=== PATIENT | female | born 1985 | race Caucasian/White ===

== ENCOUNTER 2017-04-25 20:58 | Inpatient (IN) | payer OTHER ==
[2017-04-25 21:45] VITALS: BMI 23.0
--- NOTE | 2017-04-25 22:06 | HP ---
CIWA Score - CIWA Score Nausea/Vomitin Muscle Tremors: 3 Anxiety: 3 Agitation: 3 Paroxysmal Sweats: 2 Orientation: 0-Oriented Tacttile Disturbances: 2-Mild Itch/Numbness/Burn Auditory Disturbances: 2-Mild Harshness/Frighten Visual Disturbances: 2-Mild Sensitivity Headache: 2-Mild CIWA-Ar Total Score: 22 Admission ROS [facility] - HPI Chief Complaint: i need help to stop drinking alcohol,klonopin and cocaine and marijuana,, seeking detox,last treatment 08/09 in [place] syncope alcohol and drug related anxiety depression adhd nicotine dependence longest period of sobriety Allergies/Adverse Reactions: Allergies Allergy/AdvReac Type Severity Reaction Status Date / Time Fish Containing Products Allergy Intermediate Swelling Verified 04/25/17 22:34 iodine Allergy Intermediate Hives Verified 04/25/17 22:34 poison deborah extract Allergy Intermediate Itching Verified 04/25/17 22:34 shellfish derived Allergy Intermediate Swelling Verified 04/25/17 22:34 poison oak Allergy Intermediate Itching Uncoded 04/25/17 22:34 red ant Allergy Intermediate Itching Uncoded 04/25/17 22:34 shellfish Allergy Intermediate Swelling Uncoded 04/25/17 22:34 History of Present Illness: this 32 years old female with alcohol ,klonopin,cocaine and marijuana dependence ,seeking detox,last detox 08/09 in [place] as mentioned Exam Limitations: No Limitations - Ebola screening Have you been sick,other than usual withdrawal symptoms: Yes - Review of Systems Constitutional: Chills, Loss of Appetite, Malaise, Night Sweats, Changes in sleep, Weakness EENT: reports: Nose Congestion Respiratory: reports: No Symptoms reported Cardiac: reports: No Symptoms Reported GI: reports: Diarrhea, Nausea, Vomiting, Abdominal cramping : reports: No Symptoms Reported Musculoskeletal: reports: Back Pain, Muscle Pain Integumentary: reports: Dryness Neuro: reports: Headache, Tremors Endocrine: reports: No Symptoms Reported Hematology: reports: No Symptoms Reported Psychiatric: reports: Anxious, Depressed, other (adhd) Patient History - Patient Medical History Hx Anemia: No Hx Asthma: No Hx Chronic Obstructive Pulmonary Disease (COPD): No Hx Cancer: No Hx Cardiac Disorders: No Hx Congestive Heart Failure: No Hx Hypertension: No Hx Hypercholesterolemia: No Hx Pacemaker: No HX Cerebrovascular Accident: No Hx Seizures: No Hx Dementia: No Hx Diabetes: No Hx Gastrointestinal Disorders: No Hx Liver Disease: No Hx Genitourinary Disorders: No Hx Sexually Transmitted Disorders: No Hx Renal Disease (ESRD): No Hx Thyroid Disease: No Hx Human Immunodeficiency Virus (HIV): No (last 09/2015 negative) Hx Hepatitis C: No Hx Depression: Yes (anxiety) Hx Suicide Attempt: Yes (overdose at [facility]) Hx Bipolar Disorder: No Hx Schizophrenia: No Other Medical History: no suicidal,no homicidal - Patient Surgical History Other Surgical History: tonsillectomy at age of 18 years - PPD History Previous Implant?: Yes Documented Results: Negative w/o proof Implanted On Prior [facility] Admission?: No PPD to be Administered?: Yes - Reproductive History Patient is a Female of Child Bearing Age (11 -55 yrs old): Yes Last Menstrual Period: 04/07/17 Patient : No - Smoking Cessation Smoking history: Current every day smoker Have you smoked in the past 12 months: Yes Hx Chewing Tobacco Use: No Initiated information on smoking cessation: Yes 'Breaking Loose' booklet given: 04/25/17 - Substance & Tx. History Hx Alcohol Use: Yes Hx Substance Use: Yes Substance Use Type: Alcohol, Cocaine, Marijuana, Tranquilizers Hx Substance Use Treatment: Yes (08/09 in [place]) - Substances Abused Alcohol Route: Oral Frequency: Daily Amount used: 2 pints of vodka Age of first use: 13 Date of Last Use: 04/24/17 Benzodiazepine (Klonopin) Route: Oral Frequency: Daily Amount used: 2mgs Age of first use: 12 Date of Last Use: 04/24/17 Cocaine Frequency: Daily Amount used: 50$ Age of first use: 13 Date of Last Use: 04/24/17 Marijuana/Hashish Route: Smoking Amount used: 30$ Age of first use: 10 Date of Last Use: 04/25/17 Family Disease History - Family Disease History Family History: Denies Admission Physical Exam S - Vital Signs Vital Signs: Vital Signs - 24 hr 04/25/17 21:39 Temperature 96.9 F L Pulse Rate 74 Respiratory 18 Rate Blood Pressure 103/64 - Physical General Appearance: Yes: Moderate Distress, Irritable HEENTM: Yes: Normal ENT Inspection, VIKKI, Pharynx Normal Respiratory: Yes: Lungs Clear, Normal Breath Sounds, No Respiratory Distress Neck: Yes: Within Normal Limits, Supple, Trachea in good position Breast: Yes: Breast Exam Deferred Cardiology: Yes: Within Normal Limits, Regular Rhythm, Regular Rate, S1, S2 Abdominal: Yes: Within Normal Limits, Normal Bowel Sounds, Non Tender, Flat, Soft Genitourinary: Yes: Within Normal Limits Back: Yes: Muscle Spasm Musculoskeletal: Yes: Back pain, Muscle Pain Extremities: Yes: Tremors Neurological: Yes: email specialist II-XII NML intact, Alert, Motor Strength 5/5, Normal Mood /Affect, Normal Response Integumentary: Yes: Within Normal Limits, Dry Lymphatic: Yes: Within Normal Limits - Diagnostic (1) Alcohol dependence with uncomplicated withdrawal Current Visit: Yes Status: Acute (2) Uncomplicated sedative, hypnotic or anxiolytic withdrawal Current Visit: Yes Status: Acute (3) Cocaine dependence Current Visit: Yes Status: Acute (4) Cannabis dependence Current Visit: Yes Status: Acute (5) Anxiety and depression Current Visit: Yes Status: Acute (6) Insomnia Current Visit: Yes Status: Acute (7) Nicotine dependence Current Visit: Yes Status: Acute (8) ADHD (attention deficit hyperactivity disorder) Current Visit: Yes Status: Acute (9) Fibromyalgia Current Visit: Yes Status: Acute Cleared for Admission [facility] - Detox or Rehab [facility] Level of Care: Medically Managed Detox Regimen/Protocol: Valium [facility] Breath Alcohol Content Breath Alcohol Content: 0 Urine Pregancy Test - Result Urine Test Results: Negative- NO Line Present Urine Drug Screen - Results Drug Screen Negative: No Urine Drug Screen Results: THC-Marijuana, AARON-Cocaine, AMP-Amphetamines, BZO- Benzodiazepines, TCA-Tricyclic Antidepress
[2017-04-25] MEDS ORDERED: diazePAM 5 MG TABLET PO ONE (22:34)
[2017-04-25] MEDS ORDERED: MENTHOL/PHENOL 1 EACH UD MM PRN (22:34)
[2017-04-25] MEDS ORDERED: ACETAMINOPHEN 325 MG TABLET (FP) PO PRN (22:34)
[2017-04-25] MEDS ORDERED: IBUPROFEN 400 MG TABLET (FP) PO PRN (22:34)
[2017-04-25] MEDS ORDERED: MAG HYDROX/AL HYDROX/SIMETH 30 ML UNIT-DOSE CUP PO PRN (22:34)
[2017-04-25] MEDS ORDERED: guaiFENesin/D-METHORPHAN HB 10 ML UNIT-DOSE CUPS PO PRN (22:34)
[2017-04-25] MEDS ORDERED: MAGNESIUM HYDROX 2400MG/30ML ORAL SUSPENSION 30 ML CUP PO PRN (22:34)
[2017-04-25] MEDS ORDERED: LOPERAMIDE HCL 2 MG CAPSULE PO PRN (22:34)
[2017-04-25] MEDS ORDERED: MAGNESIUM CITRATE 300 ML BOTTLE PO PRN (22:34)
[2017-04-25] MEDS ORDERED: P-EPHED 60MG/TRIPROLIDI 2.5MG TABLET PO PRN (22:34)
[2017-04-25] MEDS ORDERED: NICOTINE POLACRILEX 2 MG GUM BUC PRN (22:34)
[2017-04-25] MEDS ORDERED: diphenhydrAMINE HCL 50 MG CAPSULE PO PRN (22:34)
[2017-04-25] MEDS: diazePAM 5 MG TABLET PO SCH (23:13)
[2017-04-26 00:19] LABS: URINE APPEARANCE CLOUDY; URINE BILIRUBIN NEGATIVE (NEGATIVE); URINE BLOOD 1+ (NEGATIVE); URINE COLOR DKYELLOW; URINE GLUCOSE (UA) NEGATIVE (NEGATIVE); URINE KETONE NEGATIVE (NEGATIVE); URINE NITRITE POSITIVE (NEGATIVE); URINE UROBILINOGEN NEGATIVE mg/dL (0.2-1.0)
[2017-04-26 00:32] LABS: URINE LEUK ESTERASE 3+ (NEGATIVE); URINE PROTEIN 2+ (NEGATIVE)
[2017-04-26 00:42] LABS: URINE BACTERIA MANY /hpf (NONE SEEN); URINE MUCUS FEW; URINE RBC 31 /hpf (0-3); URINE WBC 47 /hpf (3-5)
[2017-04-26] MEDS: diazePAM 5 MG TABLET PO SCH ×3 (07:00→22:33)
--- NOTE | 2017-04-26 08:42 | CONSULT ---
[facility] Psychiatric Consult - Data Date of interview: 04/26/17 Admission source: [facility] Identifying data: This is 32 years old female with history of anxiety and depression, ADHD, with no psychiatric hospitalization historyu intoxicated with : Alcohol, Cannabis, Klonopin, Cocaine, Nicotine Substance Abuse History: - Smoking Cessation. Smoking history: Current every day smoker. Have you smoked in the past 12 months: Yes. Hx Chewing Tobacco Use : No. Initiated information on smoking cessation: Yes. 'Breaking Loose' booklet given: 04/25/17. - Substance & Tx. History. Hx Alcohol Use: Yes. Hx Substance Use: Yes. Substance Use Type: Alcohol, Cocaine, Marijuana, Tranquilizers. Hx Substance Use Treatment: Yes (08/09 in [place]). - Substances Abused. Alcohol. Route: Oral. Frequency: Daily. Amount used: 2 pints of vodka. Age of first use: 13. Date of Last Use: 04/24/17. Benzodiazepine (Klonopin). Route: Oral. Frequency: Daily. Amount used: 2mgs. Age of first use: 12. Date of Last Use: 04/24/17. Cocaine. Frequency: Daily. Amount used: 50$. Age of first use: 13. Date of Last Use: 04/24/17. * * Marijuana/Hashish. Route: Smoking. Amount used: 30$. Age of first use: 10. Date of Last Use: 04/25/17 Medical History: Denies significant medical issues Psychiatric History: Patient reports ADHD, Anxiety and Depression history, reports taking prior to admission: Flexeril 20mg po bid. Seroquel 200mg po qhs. Buspat 120mg poqd. Gabapentin 400mg po tid. Adderal 20mg po bid. Patient has been anxious and angree when MD told her regarding detox protocol - no controllable drugs usage during detoxification, patidrakemt agrees to try Styattera 80mg po bid Physical/Sexual Abuse/Trauma History: Denies Additional Comment: Flexeril 20mg po bid. Seroquel 200mg po qhs. Buspat 120mg poqd. Gabapentin 400mg po tid. Adderal 20mg po bid Mental Status Exam - Mental Status Exam Alert and Oriented to: Person Cognitive Function: Fair Patient Appearance: Well Groomed Mood: Nervous, Anxious Affect: Labile Patient Behavior: Guarded, Impulsive Speech Pattern: Appropriate Voice Loudness: Mildly Loud Thought Process: Goal Oriented Thought Disorder: Being Controlled Hallucinations: Denies Suicidal Ideation: Denies Homicidal Ideation: Denies Insight/Judgement: Fair Sleep: Difficulty falling asleep Appetite: Fair Muscle strength/Tone: Normal Gait/Station: Normal Additional Comments: Flexeril 20mg po bid. Seroquel 200mg po qhs. Buspat 120mg poqd. Gabapentin 400mg po tid. Adderal 20mg po bid Psychiatric Findings - Problem List ([place] 1, 2,3) (1) Alcohol dependence with uncomplicated withdrawal Current Visit: Yes Status: Acute (2) Cannabis dependence Current Visit: Yes Status: Acute (3) Cocaine dependence Current Visit: Yes Status: Acute (4) Nicotine dependence Current Visit: Yes Status: Acute (5) Uncomplicated sedative, hypnotic or anxiolytic withdrawal Current Visit: Yes Status: Acute (6) Drug-induced mood disorder Current Visit: Yes Status: Acute (7) ADHD (attention deficit hyperactivity disorder) Current Visit: Yes Status: Acute (8) Fibromyalgia Current Visit: Yes Status: Acute - Initial Treatment Plan Initial Treatment Plan: Flexeril 20mg po bid. Seroquel 200mg po qhs. Buspar 20mg bid. Gabapentin 400mg po tid. Strattera 80mg po bid
[2017-04-26] MEDS ORDERED: QUEtiapine FUMARATE 100 MG TABLET (FP) PO SCH (10:00)
[2017-04-26 10:04] LABS: MCH 28.9 pg (25.7-33.7); MCHC 33.7 g/dl (32.0-36.0); MEAN CELL VOLUME 85.9 fl (80-96); MEAN PLT VOLUME 9.2 fl (7.5-11.1); PLATELET COUNT 200 K/MM3 (134-434); RDW 14.6 % (11.6-15.6); WHITE BLOOD COUNT 6.9 K/mm3 (4.0-10.0)
[2017-04-26 10:21] LABS: ALBUMIN 3.8 g/dl (3.4-5.0); ALK PHOS 57 U/L (45-117); ANION GAP 4 (8-16); BILIRUBIN,TOTAL 0.5 mg/dL (0.2-1.0); CALCIUM 9.3 mg/dL (8.5-10.1); CO2 30 mmol/L (21-32); CREATININE 0.9 mg/dL (0.55-1.02); GLUCOSE,RANDOM 72 mg/dL (74-106); SGOT/AST 10 U/L (15-37); SGPT/ALT 19 U/L (12-78); TOT PROT 6.1 g/dl (6.4-8.2)
[2017-04-26] MEDS: PRENATAL VITAMINS W/ FOLIC ACID TABLET (FP) PO SCH (10:49)
[2017-04-26] MEDS: diazePAM 5 MG TABLET PO PRN ×2 (10:50→18:10)
[2017-04-26] MEDS: NICOTINE 21 MG/24 HOURS TOPICAL PATCH TD SCH (10:50)
[2017-04-26] MEDS: ATOMOXETINE HCL 40 MG CAPSULE PO SCH ×2 (10:50→16:29)
[2017-04-26] MEDS: busPIRone HCL 10 MG TABLET (FP) PO SCH ×2 (10:52→22:31)
[2017-04-26] MEDS: CYCLOBENZAPRINE HCL 10 MG TABLET (FP) PO SCH ×2 (10:52→22:31)
--- NOTE | 2017-04-26 11:27 | EKG ---
Test Reason : Blood Pressure : / mmHG Vent. Rate : 070 BPM Atrial Rate : 070 BPM P-R Int : 152 ms QRS Dur : 098 ms QT Int : 406 ms P-R-T Axes : 075 084 070 degrees QTc Int : 438 ms NORMAL SINUS RHYTHM NORMAL ECG NO PREVIOUS ECGS AVAILABLE Confirmed by PRESTON ESCALERA, SARA ([id number]) on 04/26/2017 11:26:45 AM Referred By: Pastor Cole Confirmed By:SARA JOHNSTON MD
[2017-04-26 11:29] LABS: HIV 1 & 2 AB NEGATIVE; HIV 1 AGp24 NEGATIVE
[2017-04-26] MEDS: GABAPENTIN 400 MG CAPSULE (FP) PO SCH ×2 (13:54→22:32)
[2017-04-26] MEDS: SULFAMETHOXAZOLE/TRIMETHOPRIM 800MG/160MG D.S. TABLET PO SCH ×2 (13:54→22:31)
[2017-04-26] MEDS ORDERED: GABAPENTIN 400 MG CAPSULE (FP) PO SCH (14:00)
[2017-04-26] MEDS ORDERED: DOXYCYCLINE HYCLATE 100 MG CAPSULE PO SCH (17:00)
[2017-04-26] MEDS: QUEtiapine FUMARATE 300 MG TABLET PO SCH (22:32)
[2017-04-26] MEDS: THIAMINE HCL 100 MG TABLET (FP) PO SCH (22:33)
[2017-04-27] MEDS: GABAPENTIN 400 MG CAPSULE (FP) PO SCH ×3 (05:56→22:36)
[2017-04-27] MEDS: diazePAM 5 MG TABLET PO PRN ×2 (05:58→16:37)
[2017-04-27] MEDS: CYCLOBENZAPRINE HCL 10 MG TABLET (FP) PO SCH ×2 (10:57→22:35)
[2017-04-27] MEDS: busPIRone HCL 10 MG TABLET (FP) PO SCH ×2 (10:57→22:35)
[2017-04-27] MEDS: PRENATAL VITAMINS W/ FOLIC ACID TABLET (FP) PO SCH (10:57)
[2017-04-27] MEDS: SULFAMETHOXAZOLE/TRIMETHOPRIM 800MG/160MG D.S. TABLET PO SCH ×2 (10:58→22:35)
[2017-04-27] MEDS: NICOTINE 21 MG/24 HOURS TOPICAL PATCH TD SCH (10:58)
[2017-04-27] MEDS: diazePAM 5 MG TABLET PO SCH ×2 (10:58→22:36)
[2017-04-27] MEDS: ATOMOXETINE HCL 40 MG CAPSULE PO SCH ×2 (10:58→16:36)
[2017-04-27] MEDS ORDERED: RANITIDINE HCL 150 MG TABLET (FP) PO ONE (12:09)
[2017-04-27] MEDS: IBUPROFEN 600 MG TABLET (FP) PO PRN ×2 (12:27→22:36)
--- NOTE | 2017-04-27 12:29 | PN ---
S CIWA - CIWA Score Nausea/Vomitin-No Nausea/No Vomiting Muscle Tremors: 4-Moderate,w/Arms Extend Anxiety: 3 Agitation: 4-Moderately Restless Paroxysmal Sweats: 3 Orientation: 0-Oriented Tacttile Disturbances: 0-None Auditory Disturbances: 0-None Visual Disturbances: 0-None Headache: 0-None Present CIWA-Ar Total Score: 14 [facility] Progress Note (SOAP) Subjective: irritable sweats shakes interrupted sleep agitation Objective: 04/26/17 12:27 Vital Signs - 24 hr 04/26/17 04/26/17 04/27/17 14:15 23:52 00:30 Temperature 97.9 F 97.8 F Pulse Rate 74 74 Respiratory 16 18 18 Rate Blood Pressure 98/62 99/62 04/27/17 04/27/17 04/27/17 03:30 06:44 10:00 Temperature 97.5 F L 97.2 F L Pulse Rate 85 98 H Respiratory 18 18 20 Rate Blood Pressure 105/42 93/60 Laboratory Tests 04/25/17 04/26/17 04/26/17 23:30 07:30 07:30 WBC 6.9 RBC 4.11 Hgb 11.9 Hct 35.3 MCV 85.9 MCH 28.9 MCHC 33.7 RDW 14.6 Plt Count 200 MPV 9.2 Sodium 141 Potassium 4.7 Chloride 107 Carbon Dioxide 30 Anion Gap 4 L BUN 13 Creatinine 0.9 Creat Clearance w eGFR > 60 Random Glucose 72 L Calcium 9.3 Total Bilirubin 0.5 AST 10 L ALT 19 Alkaline Phosphatase 57 Total Protein 6.1 L Albumin 3.8 Urine Color Dkyellow Urine Appearance Cloudy Urine pH 5.0 Ur Specific [employer] 1.025 Urine Protein 2+ H Urine Glucose (UA) Negative Urine Ketones Negative Urine Blood 1+ H Urine Nitrite Positive Urine Bilirubin Negative Urine Urobilinogen Negative Ur Leukocyte Esterase 3+ H Urine RBC 31 Urine WBC 47 Ur Epithelial Cells Moderate Urine Bacteria Many Urine Mucus Few RPR Titer HIV 1&2 Antibody Screen HIV P24 Antigen 04/26/17 04/26/17 07:30 07:30 WBC RBC Hgb Hct MCV MCH MCHC RDW Plt Count MPV Sodium Potassium Chloride Carbon Dioxide Anion Gap BUN Creatinine Creat Clearance w eGFR Random Glucose Calcium Total Bilirubin AST ALT Alkaline Phosphatase Total Protein Albumin Urine Color Urine Appearance Urine pH Ur Specific [employer] Urine Protein Urine Glucose (UA) Urine Ketones Urine Blood Urine Nitrite Urine Bilirubin Urine Urobilinogen Ur Leukocyte Esterase Urine RBC Urine WBC Ur Epithelial Cells Urine Bacteria Urine Mucus RPR Titer Nonreactive HIV 1&2 Antibody Screen Negative HIV P24 Antigen Negative bactrim ds bid for UTI awake/alert ambulating no acute distress Assessment: 04/26/17 12:28 withdrwal sx Plan: continue detox increase fluids bactrim ds ordered
--- NOTE | 2017-04-27 12:40 | PN ---
[facility] CIWA - CIWA Score Nausea/Vomitin-No Nausea/No Vomiting Muscle Tremors: 3 Anxiety: 2 Agitation: 3 Paroxysmal Sweats: 3 Orientation: 0-Oriented Tacttile Disturbances: 0-None Auditory Disturbances: 0-None Visual Disturbances: 0-None Headache: 0-None Present CIWA-Ar Total Score: 11 [facility] Progress Note (SOAP) Subjective: acid reflux sweats irritable agitation body aches Objective: 04/27/17 12:38 Vital Signs Temperature 97.2 F L 04/27/17 10:00 Pulse Rate 98 H 04/27/17 10:00 Respiratory Rate 20 04/27/17 10:00 Blood Pressure 93/60 04/27/17 10:00 O2 Sat by Pulse Oximetry (%) Laboratory Tests 04/25/17 04/26/17 04/26/17 23:30 07:30 07:30 WBC 6.9 RBC 4.11 Hgb 11.9 Hct 35.3 MCV 85.9 MCH 28.9 MCHC 33.7 RDW 14.6 Plt Count 200 MPV 9.2 Sodium 141 Potassium 4.7 Chloride 107 Carbon Dioxide 30 Anion Gap 4 L BUN 13 Creatinine 0.9 Creat Clearance w eGFR > 60 Random Glucose 72 L Calcium 9.3 Total Bilirubin 0.5 AST 10 L ALT 19 Alkaline Phosphatase 57 Total Protein 6.1 L Albumin 3.8 Urine Color Dkyellow Urine Appearance Cloudy Urine pH 5.0 Ur Specific [employer] 1.025 Urine Protein 2+ H Urine Glucose (UA) Negative Urine Ketones Negative Urine Blood 1+ H Urine Nitrite Positive Urine Bilirubin Negative Urine Urobilinogen Negative Ur Leukocyte Esterase 3+ H Urine RBC 31 Urine WBC 47 Ur Epithelial Cells Moderate Urine Bacteria Many Urine Mucus Few RPR Titer HIV 1&2 Antibody Screen HIV P24 Antigen 04/26/17 04/26/17 07:30 07:30 WBC RBC Hgb Hct MCV MCH MCHC RDW Plt Count MPV Sodium Potassium Chloride Carbon Dioxide Anion Gap BUN Creatinine Creat Clearance w eGFR Random Glucose Calcium Total Bilirubin AST ALT Alkaline Phosphatase Total Protein Albumin Urine Color Urine Appearance Urine pH Ur Specific [employer] Urine Protein Urine Glucose (UA) Urine Ketones Urine Blood Urine Nitrite Urine Bilirubin Urine Urobilinogen Ur Leukocyte Esterase Urine RBC Urine WBC Ur Epithelial Cells Urine Bacteria Urine Mucus RPR Titer Nonreactive HIV 1&2 Antibody Screen Negative HIV P24 Antigen Negative continue ABX for UTI repeat u/a awake/alert ambulating no acute distress Assessment: 04/27/17 12:39 withdrawal sx Plan: continue detox increase fluids zantac bid vitamin A&D oint.
[2017-04-27] MEDS: VITAMINS A AND D TOPICAL OINTMENT 60 GM TUBE TP SCH ×3 (14:59→23:19)
[2017-04-27] MEDS: hydrOXYzine PAMOATE 25 MG CAPSULE (FP) PO PRN (17:58)
[2017-04-27 22:08] LABS: URINE APPEARANCE SLCLOUDY; URINE BILIRUBIN NEGATIVE (NEGATIVE); URINE BLOOD NEGATIVE (NEGATIVE); URINE COLOR YELLOW; URINE GLUCOSE (UA) NEGATIVE (NEGATIVE); URINE KETONE NEGATIVE (NEGATIVE); URINE NITRITE NEGATIVE (NEGATIVE); URINE PROTEIN NEGATIVE (NEGATIVE); URINE UROBILINOGEN NEGATIVE mg/dL (0.2-1.0)
[2017-04-27 22:16] LABS: URINE LEUK ESTERASE 3+ (NEGATIVE)
[2017-04-27] MEDS: RANITIDINE HCL 150 MG TABLET (FP) PO SCH (22:36)
[2017-04-27] MEDS: QUEtiapine FUMARATE 300 MG TABLET PO SCH (22:36)
[2017-04-27] MEDS: THIAMINE HCL 100 MG TABLET (FP) PO SCH (22:36)
[2017-04-27 22:46] LABS: URINE MUCUS RARE; URINE RBC 2 /hpf (0-3); URINE WBC 21 /hpf (3-5)
[2017-04-28] MEDS: GABAPENTIN 400 MG CAPSULE (FP) PO SCH ×3 (05:54→22:30)
[2017-04-28] MEDS: diazePAM 5 MG TABLET PO PRN ×2 (05:56→17:10)
[2017-04-28] MEDS: VITAMINS A AND D TOPICAL OINTMENT 60 GM TUBE TP SCH ×2 (06:01→14:19)
[2017-04-28] MEDS ORDERED: RANITIDINE HCL 150 MG TABLET (FP) PO SCH (10:00)
[2017-04-28] MEDS: busPIRone HCL 10 MG TABLET (FP) PO SCH ×2 (10:33→11:04)
[2017-04-28] MEDS: diazePAM 5 MG TABLET PO SCH ×2 (11:03→22:29)
[2017-04-28] MEDS: PRENATAL VITAMINS W/ FOLIC ACID TABLET (FP) PO SCH (11:04)
[2017-04-28] MEDS: RANITIDINE HCL 150 MG TABLET (FP) PO SCH ×2 (11:04→22:31)
[2017-04-28] MEDS: CYCLOBENZAPRINE HCL 10 MG TABLET (FP) PO SCH ×2 (11:04→22:30)
[2017-04-28] MEDS: SULFAMETHOXAZOLE/TRIMETHOPRIM 800MG/160MG D.S. TABLET PO SCH ×2 (11:04→22:30)
[2017-04-28] MEDS: NICOTINE 21 MG/24 HOURS TOPICAL PATCH TD SCH (11:05)
[2017-04-28] MEDS: ATOMOXETINE HCL 40 MG CAPSULE PO SCH ×2 (11:07→17:10)
--- NOTE | 2017-04-28 14:21 | PN ---
S Progress Note (SOAP) Subjective: ALERT,IRRITABLE,ANXIOUS,INTERRUPTED SLEEP Objective: 04/28/17 14:20 Vital Signs Temperature 97 F L 04/28/17 10:11 Pulse Rate 100 H 04/28/17 10:11 Respiratory Rate 18 04/28/17 10:11 Blood Pressure 118/67 04/28/17 10:11 O2 Sat by Pulse Oximetry (%) Assessment: 04/28/17 14:20 WITHDRAWAL SYMPTOM Plan: CONTINUE DETOX,DISCHARGE IN AM
[2017-04-28] MEDS: IBUPROFEN 600 MG TABLET (FP) PO PRN (17:10)
[2017-04-28] MEDS: hydrOXYzine PAMOATE 25 MG CAPSULE (FP) PO PRN (19:36)
[2017-04-28] MEDS: THIAMINE HCL 100 MG TABLET (FP) PO SCH (22:29)
[2017-04-28] MEDS: QUEtiapine FUMARATE 300 MG TABLET PO SCH (22:30)
[2017-04-29] MEDS: GABAPENTIN 400 MG CAPSULE (FP) PO SCH (05:55)
[2017-04-29] MEDS: VITAMINS A AND D TOPICAL OINTMENT 60 GM TUBE TP SCH ×2 (05:55→06:11)
[2017-04-29] MEDS: hydrOXYzine PAMOATE 25 MG CAPSULE (FP) PO PRN (06:13)
--- NOTE | 2017-04-29 08:45 | DS ---
[facility] Detox Discharge Summary Admission Date: 04/25/17 Discharge Date: 04/29/17 - History Present History: Alcohol Dependence, Cannabis Dependence, Cocaine Dependence, Sedative Dependence Additional Comments: FOLLOW UP WITH AFTER CARE PROGRAM ARRANGEMENT Pertinent Past History: ANXIETY AND DEPRESSION FIBROMYALGIA - Physical Exam Results Vital Signs: Vital Signs Temperature 96 F L 04/29/17 06:41 Pulse Rate 74 04/29/17 06:41 Respiratory Rate 18 04/29/17 06:41 Blood Pressure 97/50 04/29/17 06:41 O2 Sat by Pulse Oximetry (%) Pertinent Admission Physical Exam Findings: WITHDRAWAL SYMPTOM - Treatment Hospital Course: Detox Protocol Followed, Detoxed Safely, Responded well, Discharged Condition Good, Rehab Referral Accepted Patient has Accepted a Rehab Referral to: [facility] - Medication Discharge Medications: Ambulatory Orders Buspirone HCl [Buspar -] 120 mg PO DAILY 04/25/17 Clonazepam [Klonopin] 1 mg PO BID 04/25/17 Cyclobenzaprine HCl [Flexeril 10 mg] 20 mg PO BID 04/25/17 Dextroamphetamine/Amphetamine [Adderall Xr 20 mg Capsule] 20 mg PO BID 04/25/17 Doxycycline Hyclate [Vibramycin] 300 mg PO BID 04/25/17 Gabapentin [Neurontin] 400 mg PO QID 04/25/17 Quetiapine Fumarate [Seroquel -] 600 mg PO HS 04/25/17 Atomoxetine HCl [Strattera] 40 mg PO BID #60 tab 04/26/17 Atomoxetine HCl [Strattera] 40 mg PO BID #60 tab 04/26/17 Atomoxetine HCl [Strattera] 40 mg PO BID #60 tab 04/26/17 Buspirone HCl [Buspar -] 15 mg PO BID #60 tablet 04/26/17 Buspirone HCl [Buspar -] 15 mg PO BID #60 tablet 04/26/17 Buspirone HCl [Buspar -] 20 mg PO TID #90 tablet 04/26/17 Cyclobenzaprine HCl [Flexeril -] 10 mg PO TID #90 tablet 04/26/17 Cyclobenzaprine HCl [Flexeril -] 20 mg PO BID #60 tablet 04/26/17 Cyclobenzaprine HCl [Flexeril 10 mg] 20 mg PO BID #60 tab 04/26/17 Gabapentin 400 mg PO TID #90 capsule 04/26/17 Gabapentin 400 mg PO TID #90 capsule 04/26/17 Gabapentin [Neurontin -] 400 mg PO TID #90 cap 04/26/17 Quetiapine Fumarate [Seroquel -] 600 mg PO HS #30 tab 04/26/17 Quetiapine Fumarate [Seroquel -] 600 mg PO HS #30 tab 04/26/17 Quetiapine Fumarate [Seroquel] 600 mg PO HS #30 tablet 04/26/17 - Diagnosis (1) Alcohol dependence with uncomplicated withdrawal Current Visit: Yes Status: Acute (2) Uncomplicated sedative, hypnotic or anxiolytic withdrawal Current Visit: Yes Status: Acute (3) Cocaine dependence Current Visit: Yes Status: Acute (4) Cannabis dependence Current Visit: Yes Status: Acute (5) Anxiety and depression Current Visit: Yes Status: Acute (6) Insomnia Current Visit: Yes Status: Acute (7) Nicotine dependence Current Visit: Yes Status: Acute (8) ADHD (attention deficit hyperactivity disorder) Current Visit: Yes Status: Acute (9) Fibromyalgia Current Visit: Yes Status: Acute - AMA Did Patient Leave Against Medical Advice: No
[2017-04-29] MEDS: PRENATAL VITAMINS W/ FOLIC ACID TABLET (FP) PO SCH (09:03)
[2017-04-29] MEDS: busPIRone HCL 10 MG TABLET (FP) PO SCH (09:03)
[2017-04-29] MEDS: RANITIDINE HCL 150 MG TABLET (FP) PO SCH (09:04)
[2017-04-29] MEDS: ATOMOXETINE HCL 40 MG CAPSULE PO SCH (09:04)
[2017-04-29] MEDS: CYCLOBENZAPRINE HCL 10 MG TABLET (FP) PO SCH (09:04)
[2017-04-29] MEDS: SULFAMETHOXAZOLE/TRIMETHOPRIM 800MG/160MG D.S. TABLET PO SCH (09:04)
[2017-04-29] MEDS: NICOTINE 21 MG/24 HOURS TOPICAL PATCH TD SCH (09:05)
[2017-04-29] MEDS ORDERED: diazePAM 5 MG TABLET PO SCH (10:00)
[2017-04-29 10:39] VITALS: BP 122/90; PULSE 62; TEMP 98.1
== END 2017-04-29 10:10 | disposition home or self-care (01) | DRG 774 ==
LOC: YASAS 20:58 → Y6N 22:42
PROVIDERS: ADMIT Internal Medicine Addiction Medicine; ATTEND Internal Medicine Addiction Medicine
PROC: HZ2ZZZZ Detoxification Services for Substance Abuse Treatment (ICD-10-PCS; principal; 2017-04-25)
DX: F13.230 Sedative, hypnotic or anxiolytic dependence with withdrawal, uncomplicated (principal); F10.230 Alcohol dependence with withdrawal, uncomplicated; F14.20 Cocaine dependence, uncomplicated; F12.20 Cannabis dependence, uncomplicated; F17.210 Nicotine dependence, cigarettes, uncomplicated; F41.9 Anxiety disorder, unspecified; F32.9 Major depressive disorder, single episode, unspecified; F19.24 Other psychoactive substance dependence with psychoactive substance-induced mood disorder; F90.9 Attention-deficit hyperactivity disorder, unspecified type; G47.00 Insomnia, unspecified; M79.7 Fibromyalgia; N39.0 Urinary tract infection, site not specified; Z91.013 Allergy to seafood; Z91.048 Other nonmedicinal substance allergy status; Z91.5 Personal history of self-harm
CPT/HCPCS: 36415; 80053; 81003; 81015; 85027; 86593; 87389; 93005; 93010

== ENCOUNTER 2017-04-30 12:03 | Inpatient (IN) | payer BC ==
[2017-04-30 13:32] VITALS: BMI 23.0
[2017-04-30] MEDS ORDERED: guaiFENesin/D-METHORPHAN HB 10 ML UNIT-DOSE CUPS PO PRN (15:10)
[2017-04-30] MEDS ORDERED: LOPERAMIDE HCL 2 MG CAPSULE PO PRN (15:10)
[2017-04-30] MEDS ORDERED: P-EPHED 60MG/TRIPROLIDI 2.5MG TABLET PO PRN (15:10)
[2017-04-30] MEDS ORDERED: IBUPROFEN 400 MG TABLET (FP) PO PRN (15:10)
[2017-04-30] MEDS ORDERED: MENTHOL/PHENOL 1 EACH UD MM PRN (15:10)
[2017-04-30] MEDS ORDERED: MAGNESIUM CITRATE 300 ML BOTTLE PO PRN (15:10)
[2017-04-30] MEDS ORDERED: diphenhydrAMINE HCL 50 MG CAPSULE PO PRN (15:10)
[2017-04-30] MEDS ORDERED: MAGNESIUM HYDROX 2400MG/30ML ORAL SUSPENSION 30 ML CUP PO PRN (15:10)
--- NOTE | 2017-04-30 15:10 | HP ---
[facility] Rehab Assess/Revision - Admission History Admitted to Rehab from: [facility] - Vital signs Vital Signs: Vital Signs Period Temp Pulse Resp BP Sys/Mejia Pulse Ox Last 24 Hr 97 F 95 20 101/65 - Findings Detox History & Physical reviewed: Yes Concur with findings: Yes
[2017-04-30] MEDS: busPIRone HCL 10 MG TABLET (FP) PO SCH (21:29)
[2017-04-30] MEDS: GABAPENTIN 400 MG CAPSULE (FP) PO SCH (21:29)
[2017-04-30] MEDS: SULFAMETHOXAZOLE/TRIMETHOPRIM 800MG/160MG D.S. TABLET PO SCH (21:29)
[2017-04-30] MEDS: QUEtiapine FUMARATE 300 MG TABLET PO SCH (21:30)
[2017-04-30] MEDS: THIAMINE HCL 100 MG TABLET (FP) PO SCH (21:30)
[2017-04-30] MEDS ORDERED: PT OWN MED DRAWER 7, Y5N ONE (22:05)
[2017-04-30 22:42] LABS: URINE APPEARANCE CLEAR; URINE BILIRUBIN NEGATIVE (NEGATIVE); URINE BLOOD NEGATIVE (NEGATIVE); URINE COLOR LTYELLOW; URINE GLUCOSE (UA) NEGATIVE (NEGATIVE); URINE KETONE NEGATIVE (NEGATIVE); URINE NITRITE NEGATIVE (NEGATIVE); URINE PROTEIN NEGATIVE (NEGATIVE); URINE UROBILINOGEN NEGATIVE mg/dL (0.2-1.0)
[2017-04-30 22:44] LABS: URINE LEUK ESTERASE 1+ (NEGATIVE)
[2017-04-30 23:08] LABS: URINE RBC 1 /hpf (0-3); URINE WBC 2 /hpf (3-5)
[2017-04-30] MEDS: MAG HYDROX/AL HYDROX/SIMETH 30 ML UNIT-DOSE CUP PO PRN (23:38)
[2017-05-01] MEDS: GABAPENTIN 400 MG CAPSULE (FP) PO SCH ×3 (06:14→21:46)
[2017-05-01] MEDS ORDERED: PT OWN MED DRAWER 7, Y5N ONE ×3 (08:26→12:58)
[2017-05-01] MEDS: MAG HYDROX/AL HYDROX/SIMETH 30 ML UNIT-DOSE CUP PO PRN (08:37)
[2017-05-01] MEDS: NICOTINE 21 MG/24 HOURS TOPICAL PATCH TD SCH (09:55)
[2017-05-01] MEDS: busPIRone HCL 10 MG TABLET (FP) PO SCH ×2 (09:56→21:45)
[2017-05-01] MEDS: PRENATAL VITAMINS W/ FOLIC ACID TABLET (FP) PO SCH (09:56)
[2017-05-01] MEDS: SULFAMETHOXAZOLE/TRIMETHOPRIM 800MG/160MG D.S. TABLET PO SCH ×2 (09:58→21:45)
[2017-05-01] MEDS: ATOMOXETINE HCL 40 MG CAPSULE PO SCH ×2 (09:58→13:00)
[2017-05-01] MEDS ORDERED: RANITIDINE HCL 150 MG TABLET (FP) PO ONE (14:45)
[2017-05-01] MEDS: PANTOPRAZOLE 40 MG TABLET (FP) PO SCH (15:53)
[2017-05-01] MEDS ORDERED: PNEUMOC 13-VAL CONJ-DIP CRM/PF 0.5 ML DISP.SYRIN IM ONE (15:56)
[2017-05-01] MEDS: QUEtiapine FUMARATE 300 MG TABLET PO SCH (21:45)
[2017-05-01] MEDS: RANITIDINE HCL 150 MG TABLET (FP) PO SCH (21:45)
[2017-05-01] MEDS: THIAMINE HCL 100 MG TABLET (FP) PO SCH (21:46)
[2017-05-01] MEDS: hydrOXYzine PAMOATE 50 MG CAPSULE (FP) PO PRN (21:49)
[2017-05-02] MEDS: GABAPENTIN 400 MG CAPSULE (FP) PO SCH ×3 (06:32→21:42)
[2017-05-02] MEDS: CYCLOBENZAPRINE HCL 10 MG TABLET (FP) PO PRN ×2 (06:33→21:45)
[2017-05-02] MEDS ORDERED: PT OWN MED DRAWER 7, Y5N ONE ×2 (08:21→13:03)
[2017-05-02] MEDS: busPIRone HCL 10 MG TABLET (FP) PO SCH ×2 (10:25→21:43)
[2017-05-02] MEDS: SULFAMETHOXAZOLE/TRIMETHOPRIM 800MG/160MG D.S. TABLET PO SCH ×2 (10:25→21:43)
[2017-05-02] MEDS: PANTOPRAZOLE 40 MG TABLET (FP) PO SCH (10:26)
[2017-05-02] MEDS: NICOTINE 21 MG/24 HOURS TOPICAL PATCH TD SCH (10:26)
[2017-05-02] MEDS: ATOMOXETINE HCL 40 MG CAPSULE PO SCH ×2 (10:26→13:06)
[2017-05-02] MEDS: PRENATAL VITAMINS W/ FOLIC ACID TABLET (FP) PO SCH (10:26)
[2017-05-02] MEDS: RANITIDINE HCL 150 MG TABLET (FP) PO SCH ×2 (10:28→21:43)
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
[2017-05-02] MEDS: hydrOXYzine PAMOATE 50 MG CAPSULE (FP) PO PRN ×3 (11:06→22:05)
[2017-05-02] MEDS ORDERED: PNEUMOCOCCAL 23 VACCINE 0.5 ML VIAL IM ONE (12:00)
[2017-05-02 13:23] LABS: AMYLASE 69 U/L (25-115)
--- NOTE | 2017-05-02 14:51 | EKG ---
Test Reason : Blood Pressure : / mmHG Vent. Rate : 075 BPM Atrial Rate : 075 BPM P-R Int : 154 ms QRS Dur : 102 ms QT Int : 404 ms P-R-T Axes : 069 082 068 degrees QTc Int : 451 ms NORMAL SINUS RHYTHM INCOMPLETE RIGHT BUNDLE BRANCH BLOCK BORDERLINE ECG WHEN COMPARED WITH ECG OF 25-APR-2017 23:08, T WAVE INVERSION NOW EVIDENT IN ANTERIOR LEADS Confirmed by SADIE ALBARRAN MD ([id number]) on 05/02/2017 2:51:01 PM Referred By: Confirmed By:SADIE ALBARRAN MD
--- NOTE | 2017-05-02 15:03 | PN ---
[facility] Progress Note Note: Amylase & Lipase are WNL
[2017-05-02] MEDS: QUEtiapine FUMARATE 300 MG TABLET PO SCH (21:42)
[2017-05-02] MEDS: THIAMINE HCL 100 MG TABLET (FP) PO SCH (21:43)
[2017-05-03] MEDS: GABAPENTIN 400 MG CAPSULE (FP) PO SCH ×3 (06:28→21:38)
[2017-05-03] MEDS: CYCLOBENZAPRINE HCL 10 MG TABLET (FP) PO PRN ×2 (06:29→15:11)
[2017-05-03] MEDS: hydrOXYzine PAMOATE 50 MG CAPSULE (FP) PO PRN ×3 (06:29→21:41)
[2017-05-03] MEDS ORDERED: PT OWN MED DRAWER 7, Y5N ONE ×2 (08:31→12:54)
[2017-05-03] MEDS: PRENATAL VITAMINS W/ FOLIC ACID TABLET (FP) PO SCH (10:30)
[2017-05-03] MEDS: NICOTINE 21 MG/24 HOURS TOPICAL PATCH TD SCH (10:30)
[2017-05-03] MEDS: SULFAMETHOXAZOLE/TRIMETHOPRIM 800MG/160MG D.S. TABLET PO SCH ×2 (10:30→21:38)
[2017-05-03] MEDS: RANITIDINE HCL 150 MG TABLET (FP) PO SCH ×2 (10:30→21:38)
[2017-05-03] MEDS: busPIRone HCL 10 MG TABLET (FP) PO SCH ×2 (10:31→21:38)
[2017-05-03] MEDS: PANTOPRAZOLE 40 MG TABLET (FP) PO SCH (10:31)
[2017-05-03] MEDS: ATOMOXETINE HCL 40 MG CAPSULE PO SCH ×2 (10:31→13:06)
[2017-05-03] MEDS: QUEtiapine FUMARATE 300 MG TABLET PO SCH (21:38)
[2017-05-03] MEDS: THIAMINE HCL 100 MG TABLET (FP) PO SCH (21:38)
[2017-05-04] MEDS: GABAPENTIN 400 MG CAPSULE (FP) PO SCH ×3 (05:30→21:50)
[2017-05-04] MEDS: hydrOXYzine PAMOATE 50 MG CAPSULE (FP) PO PRN ×2 (05:31→10:34)
[2017-05-04] MEDS: CYCLOBENZAPRINE HCL 10 MG TABLET (FP) PO PRN ×3 (07:07→23:26)
[2017-05-04] MEDS: NICOTINE 21 MG/24 HOURS TOPICAL PATCH TD SCH (10:33)
[2017-05-04] MEDS: busPIRone HCL 10 MG TABLET (FP) PO SCH ×2 (10:33→21:50)
[2017-05-04] MEDS: RANITIDINE HCL 150 MG TABLET (FP) PO SCH ×2 (10:34→21:50)
[2017-05-04] MEDS: PRENATAL VITAMINS W/ FOLIC ACID TABLET (FP) PO SCH (10:34)
[2017-05-04] MEDS: ATOMOXETINE HCL 40 MG CAPSULE PO SCH ×2 (10:34→13:06)
[2017-05-04] MEDS: PANTOPRAZOLE 40 MG TABLET (FP) PO SCH (10:34)
[2017-05-04] MEDS: SULFAMETHOXAZOLE/TRIMETHOPRIM 800MG/160MG D.S. TABLET PO SCH ×2 (10:34→21:50)
[2017-05-04] MEDS ORDERED: PT OWN MED DRAWER 7, Y5N ONE (12:27)
--- NOTE | 2017-05-04 15:07 | PN ---
Psychiatric Progress Note Vital Signs: Vital Signs Period Temp Pulse Resp BP Sys/Mejia Pulse Ox Last 24 Hr 97.4 F 83 16-18 114/75 Date of Session: 05/04/17 Chief Complaint:: Drew still depressed and anxious,sometimes feeling claustrophobic. HPI: Alcohol,Opioid,Cocaine and Cannabis dependence comorbid with Bipolar disorder. ROS: H/O Lyme disease,UTI,Fibromialgia. Current Medications: Active Medications Generic Name Dose Route Start Last Admin Trade Name Freq PRN Reason Stop Dose Admin Acetaminophen 650 mg 04/30/17 15:10 Tylenol - PO Q4H PRN PAIN Al Hydroxide/Mg Hydroxide 30 ml 04/30/17 15:10 05/01/17 08:37 Mylanta Oral Suspension - PO 30 ml Q6H PRN Administration DYSPEPSIA Atomoxetine HCl 40 mg 05/01/17 10:00 05/04/17 13:06 Strattera - PO 40 mg BID@1000,1400 COBY Administration Buspirone HCl 20 mg 04/30/17 22:00 05/04/17 10:33 Buspar - PO 20 mg BID COBY Administration Cyclobenzaprine HCl 10 mg 04/30/17 15:13 05/04/17 07:07 Flexeril - PO 10 mg TID PRN Administration MUSCLE SPASMS Diphenhydramine HCl 50 mg 04/30/17 15:10 Benadryl - PO HSMR1 PRN INSOMNIA Eucalyptus/Menthol/Phenol/Sorbitol 1 each 04/30/17 15:10 Cepastat Lozenge - MM Q4H PRN SORE THROAT Gabapentin 800 mg 05/02/17 14:00 05/04/17 13:06 Neurontin - PO 800 mg TID COBY Administration Guaifenesin 10 ml 04/30/17 15:10 Robitussin Dm - PO Q6H PRN COUGH Hydroxyzine Pamoate 50 mg 04/30/17 15:10 05/04/17 10:34 Vistaril - PO 50 mg Q4H PRN Administration AGITATION Ibuprofen 600 mg 04/30/17 15:10 Motrin - PO Q6H PRN SEVERE PAIN Loperamide HCl 4 mg 04/30/17 15:10 Imodium - PO Q6H PRN DIARRHEA Magnesium Citrate 300 ml 04/30/17 15:10 Citroma - PO Q48H PRN CONSTIPATION Magnesium Hydroxide 30 ml 04/30/17 15:10 Milk Of Magnesia - PO DAILY PRN CONSTIPATION Nicotine 21 mg 05/01/17 10:00 05/04/17 10:33 Nicoderm Patch - TD 21 mg DAILY COBY Administration Pantoprazole Sodium 40 mg 05/01/17 14:45 05/04/17 10:34 Protonix - PO 40 mg DAILY COBY Administration Multivit/Folic Acid/Iron 1 tab 05/01/17 10:00 05/04/17 10:34 Vitamins (Sjr) - PO 1 tab DAILY COBY Administration Pseudoephedrine/Triprolidine 1 combo 04/30/17 15:10 Actifed - PO TID PRN NASAL CONGESTION Quetiapine Fumarate 600 mg 04/30/17 22:00 05/03/17 21:38 Seroquel - PO 600 mg HS COBY Administration Ranitidine HCl 150 mg 05/01/17 22:00 05/04/17 10:34 Zantac - PO 150 mg BID COBY Administration Thiamine HCl 100 mg 04/30/17 22:00 05/03/17 21:38 Vitamin B1 - PO 100 mg HS COBY Administration Trimethoprim/Sulfamethoxazole 1 each 04/30/17 22:00 05/04/17 10:34 Bactrim Ds - PO 05/07/17 21:59 1 each BID COBY Administration Current Side Effect: No Lab tests ordered: No Lab tests reviewed: Yes Provider note:: Chart was revuewed,patient was seen in my office to ddress ongoing depressed mood with anxiety,periods of irritability.Properties of Lexaprohas been discussd with the patient including side efeect profile, benefits and dose adjustment.Patient is willing to start Lexapro 5 mg po daily( considering increase dose as needed). Supporive therapy provided. Total face to face time:: 25 Mental Status Exam - Mental Status Exam Alert and Oriented to: Time, Place, Person Cognitive Function: Grossly Intact Patient Appearance: Well Groomed Mood: Nervous, Anxious, Apprehensive, Expansive Affect: Mood Congruent, Labile Patient Behavior: Talkative, Cooperative Speech Pattern: Clear Voice Loudness: Normal Thought Process: Goal Oriented Thought Disorder: Not Present Hallucinations: Denies Suicidal Ideation: Denies Homicidal Ideation: Denies Insight/Judgement: Fair Sleep: Difficulty falling asleep Appetite: Good Muscle strength/Tone: Normal Gait/Station: Normal Psychiatric Treatment Plan - Problem List (1) ADHD (attention deficit hyperactivity disorder) Current Visit: Yes (2) Alcohol dependence with uncomplicated withdrawal Current Visit: Yes (3) Cannabis dependence Current Visit: Yes (4) Cocaine dependence Current Visit: Yes (5) Drug-induced mood disorder Current Visit: Yes (6) Fibromyalgia Current Visit: Yes (7) Nicotine dependence Current Visit: Yes (8) UTI (urinary tract infection) Current Visit: Yes (9) Opioid dependence Current Visit: Yes (10) PTSD (post-traumatic stress disorder) Current Visit: Yes
[2017-05-04] MEDS: ESCITALOPRAM OXALATE 10 MG TABLET (FP) PO SCH (15:17)
[2017-05-04] MEDS: QUEtiapine FUMARATE 300 MG TABLET PO SCH (21:50)
[2017-05-04] MEDS: THIAMINE HCL 100 MG TABLET (FP) PO SCH (21:50)
[2017-05-04] MEDS: hydrOXYzine PAMOATE 50 MG CAPSULE (FP) PO SCH (21:51)
[2017-05-05] MEDS: GABAPENTIN 400 MG CAPSULE (FP) PO SCH ×3 (06:30→21:39)
[2017-05-05] MEDS: NICOTINE 21 MG/24 HOURS TOPICAL PATCH TD SCH (10:08)
[2017-05-05] MEDS: CYCLOBENZAPRINE HCL 10 MG TABLET (FP) PO PRN ×2 (10:09→21:39)
[2017-05-05] MEDS: PRENATAL VITAMINS W/ FOLIC ACID TABLET (FP) PO SCH (10:09)
[2017-05-05] MEDS: hydrOXYzine PAMOATE 50 MG CAPSULE (FP) PO SCH ×2 (10:09→21:38)
[2017-05-05] MEDS: ESCITALOPRAM OXALATE 10 MG TABLET (FP) PO SCH (10:10)
[2017-05-05] MEDS: busPIRone HCL 10 MG TABLET (FP) PO SCH ×2 (10:10→21:40)
[2017-05-05] MEDS: SULFAMETHOXAZOLE/TRIMETHOPRIM 800MG/160MG D.S. TABLET PO SCH ×2 (10:11→21:39)
[2017-05-05] MEDS: PANTOPRAZOLE 40 MG TABLET (FP) PO SCH (10:11)
[2017-05-05] MEDS: RANITIDINE HCL 150 MG TABLET (FP) PO SCH ×2 (10:11→21:39)
[2017-05-05] MEDS: ATOMOXETINE HCL 40 MG CAPSULE PO SCH ×2 (10:12→13:05)
[2017-05-05] MEDS: THIAMINE HCL 100 MG TABLET (FP) PO SCH (21:38)
[2017-05-05] MEDS: QUEtiapine FUMARATE 300 MG TABLET PO SCH (21:39)
[2017-05-06] MEDS: CYCLOBENZAPRINE HCL 10 MG TABLET (FP) PO PRN ×2 (06:46→17:18)
[2017-05-06] MEDS: GABAPENTIN 400 MG CAPSULE (FP) PO SCH ×3 (06:46→21:39)
[2017-05-06] MEDS: NICOTINE 21 MG/24 HOURS TOPICAL PATCH TD SCH (09:46)
[2017-05-06] MEDS: hydrOXYzine PAMOATE 50 MG CAPSULE (FP) PO SCH ×2 (09:47→21:38)
[2017-05-06] MEDS: RANITIDINE HCL 150 MG TABLET (FP) PO SCH ×2 (09:47→21:38)
[2017-05-06] MEDS: PRENATAL VITAMINS W/ FOLIC ACID TABLET (FP) PO SCH (09:47)
[2017-05-06] MEDS: SULFAMETHOXAZOLE/TRIMETHOPRIM 800MG/160MG D.S. TABLET PO SCH ×2 (09:47→21:38)
[2017-05-06] MEDS: PANTOPRAZOLE 40 MG TABLET (FP) PO SCH (09:47)
[2017-05-06] MEDS: busPIRone HCL 10 MG TABLET (FP) PO SCH ×2 (09:48→21:38)
[2017-05-06] MEDS: ESCITALOPRAM OXALATE 10 MG TABLET (FP) PO SCH (09:48)
[2017-05-06] MEDS: ATOMOXETINE HCL 40 MG CAPSULE PO SCH ×2 (09:48→13:05)
[2017-05-06] MEDS: IBUPROFEN 600 MG TABLET (FP) PO PRN ×2 (12:41→18:51)
[2017-05-06] MEDS: ACETAMINOPHEN 325 MG TABLET (FP) PO PRN (17:18)
[2017-05-06] MEDS: THIAMINE HCL 100 MG TABLET (FP) PO SCH (21:38)
[2017-05-06] MEDS: QUEtiapine FUMARATE 300 MG TABLET PO SCH (21:38)
[2017-05-07] MEDS: IBUPROFEN 600 MG TABLET (FP) PO PRN ×4 (04:35→21:46)
[2017-05-07] MEDS: GABAPENTIN 400 MG CAPSULE (FP) PO SCH ×3 (06:35→21:48)
[2017-05-07] MEDS: CYCLOBENZAPRINE HCL 10 MG TABLET (FP) PO PRN ×2 (06:36→21:47)
[2017-05-07] MEDS ORDERED: PT OWN MED DRAWER 7, Y5N ONE ×2 (09:22→13:37)
[2017-05-07] MEDS: hydrOXYzine PAMOATE 50 MG CAPSULE (FP) PO SCH ×2 (10:35→21:47)
[2017-05-07] MEDS: ATOMOXETINE HCL 40 MG CAPSULE PO SCH ×2 (10:35→13:47)
[2017-05-07] MEDS: PANTOPRAZOLE 40 MG TABLET (FP) PO SCH (10:35)
[2017-05-07] MEDS: PRENATAL VITAMINS W/ FOLIC ACID TABLET (FP) PO SCH (10:36)
[2017-05-07] MEDS: RANITIDINE HCL 150 MG TABLET (FP) PO SCH ×2 (10:36→21:47)
[2017-05-07] MEDS: SULFAMETHOXAZOLE/TRIMETHOPRIM 800MG/160MG D.S. TABLET PO SCH ×2 (10:36→21:46)
[2017-05-07] MEDS: busPIRone HCL 10 MG TABLET (FP) PO SCH (10:36)
[2017-05-07] MEDS: ESCITALOPRAM OXALATE 10 MG TABLET (FP) PO SCH (10:37)
[2017-05-07] MEDS: NICOTINE 21 MG/24 HOURS TOPICAL PATCH TD SCH (10:38)
--- NOTE | 2017-05-07 13:23 | PN ---
[facility] Progress Note Note: Whitish vaginal d/c since taking antibiotic Vital Signs - 8 hr 05/07/17 07:16 Temperature 97.8 F Pulse Rate 89 Respiratory 18 Rate Blood Pressure 105/72 Dx. : Yeast infection P : Diflucan 150mg lactobaccilus
[2017-05-07] MEDS: ACETAMINOPHEN 325 MG TABLET (FP) PO PRN (13:49)
[2017-05-07] MEDS ORDERED: FLUCONAZOLE 50 MG TABLET PO ONE (14:02)
[2017-05-07] MEDS: LACTOBACILLUS ACIDOPHILUS 1 EACH TAB (FP) PO SCH (15:22)
--- NOTE | 2017-05-07 15:59 | PN ---
Psychiatric Progress Note Vital Signs: Vital Signs Period Temp Pulse Resp BP Sys/Mejia Pulse Ox Last 24 Hr 97.8 F 89 18-18 105/72 Date of Session: 05/07/17 Chief Complaint:: Drew still anxious and nervious. HPI: Patient addressed Cocaine,Opioid,Alcohol dependence comorbid with ADHD, Bipolar disorder. ROS: Unremarkable. Current Medications: Active Medications Generic Name Dose Route Start Last Admin Trade Name Freq PRN Reason Stop Dose Admin Acetaminophen 650 mg 04/30/17 15:10 05/07/17 13:49 Tylenol - PO 650 mg Q4H PRN Administration PAIN Al Hydroxide/Mg Hydroxide 30 ml 04/30/17 15:10 05/01/17 08:37 Mylanta Oral Suspension - PO 30 ml Q6H PRN Administration DYSPEPSIA Atomoxetine HCl 40 mg 05/01/17 10:00 05/07/17 13:47 Strattera - PO 40 mg BID@1000,1400 COBY Administration Buspirone HCl 30 mg 05/07/17 22:00 Buspar - PO BID COBY Cyclobenzaprine HCl 10 mg 04/30/17 15:13 05/07/17 06:36 Flexeril - PO 10 mg TID PRN Administration MUSCLE SPASMS Diphenhydramine HCl 50 mg 04/30/17 15:10 Benadryl - PO HSMR1 PRN INSOMNIA Escitalopram Oxalate 10 mg 05/08/17 10:00 Lexapro - PO DAILY COBY Eucalyptus/Menthol/Phenol/Sorbitol 1 each 04/30/17 15:10 Cepastat Lozenge - MM Q4H PRN SORE THROAT Gabapentin 800 mg 05/02/17 14:00 05/07/17 13:47 Neurontin - PO 800 mg TID COBY Administration Guaifenesin 10 ml 04/30/17 15:10 Robitussin Dm - PO Q6H PRN COUGH Hydroxyzine Pamoate 100 mg 05/04/17 22:00 05/07/17 10:35 Vistaril - PO 100 mg BID COBY Administration Ibuprofen 600 mg 05/06/17 12:39 05/07/17 10:36 Motrin - PO 600 mg Q6H PRN Administration SEVERE PAIN Lactobacillus Acidophilus 1 tab 05/07/17 13:30 05/07/17 15:22 Bacid - PO 1 tab DAILY COBY Administration Loperamide HCl 4 mg 04/30/17 15:10 Imodium - PO Q6H PRN DIARRHEA Magnesium Citrate 300 ml 04/30/17 15:10 Citroma - PO Q48H PRN CONSTIPATION Magnesium Hydroxide 30 ml 04/30/17 15:10 Milk Of Magnesia - PO DAILY PRN CONSTIPATION Nicotine 21 mg 05/01/17 10:00 05/07/17 10:38 Nicoderm Patch - TD 21 mg DAILY COBY Administration Pantoprazole Sodium 40 mg 05/01/17 14:45 05/07/17 10:35 Protonix - PO 40 mg DAILY COBY Administration Multivit/Folic Acid/Iron 1 tab 05/01/17 10:00 05/07/17 10:36 Vitamins (Sjr) - PO 1 tab DAILY COBY Administration Pseudoephedrine/Triprolidine 1 combo 04/30/17 15:10 Actifed - PO TID PRN NASAL CONGESTION Quetiapine Fumarate 600 mg 04/30/17 22:00 05/06/17 21:38 Seroquel - PO 600 mg HS COBY Administration Ranitidine HCl 150 mg 05/01/17 22:00 05/07/17 10:36 Zantac - PO 150 mg BID COBY Administration Thiamine HCl 100 mg 04/30/17 22:00 05/06/17 21:38 Vitamin B1 - PO 100 mg HS COBY Administration Trimethoprim/Sulfamethoxazole 1 each 04/30/17 22:00 05/07/17 10:36 Bactrim Ds - PO 05/07/17 21:59 1 each BID COBY Administration Current Side Effect: No Lab tests ordered: No Lab tests reviewed: Yes Provider note:: Chart was revuewed,patient was evaluated and treatment plan including medication management was discussed with the patient.Patient addressed anxiety,irritability,mood instability.She reports some response to Buspar .Properties of Buspar has been discussed with the patient including side effects,benefits and dose adjustment.Buspar 20 mg po bid will be adjusted to 30 mg po bid. Relaxation techniques has been discussed withg the patient as well. supportive therapy provided. Total face to face time:: 30 Mental Status Exam - Mental Status Exam Alert and Oriented to: Time, Place, Person Cognitive Function: Grossly Intact Patient Appearance: Well Groomed Mood: Anxious, Apprehensive, Expansive Affect: Labile Patient Behavior: Restless, Talkative, Cooperative Speech Pattern: Excessive Voice Loudness: Normal Thought Process: Goal Oriented Thought Disorder: Not Present Hallucinations: Denies Suicidal Ideation: Denies Homicidal Ideation: Denies Insight/Judgement: Fair Sleep: Difficulty falling asleep Appetite: Fair Muscle strength/Tone: Normal Gait/Station: Normal Psychiatric Treatment Plan - Problem List (1) ADHD (attention deficit hyperactivity disorder) Current Visit: Yes (2) Alcohol dependence with uncomplicated withdrawal Current Visit: Yes (3) Cannabis dependence Current Visit: Yes (4) Cocaine dependence Current Visit: Yes (5) Drug-induced mood disorder Current Visit: Yes (6) Fibromyalgia Current Visit: Yes (7) Nicotine dependence Current Visit: Yes (8) UTI (urinary tract infection) Current Visit: Yes (9) Opioid dependence Current Visit: Yes (10) PTSD (post-traumatic stress disorder) Current Visit: Yes
[2017-05-07] MEDS: THIAMINE HCL 100 MG TABLET (FP) PO SCH (21:46)
[2017-05-07] MEDS: QUEtiapine FUMARATE 300 MG TABLET PO SCH (21:47)
[2017-05-08] MEDS: IBUPROFEN 600 MG TABLET (FP) PO PRN ×3 (06:56→22:40)
[2017-05-08] MEDS: CYCLOBENZAPRINE HCL 10 MG TABLET (FP) PO PRN ×2 (06:56→15:33)
[2017-05-08] MEDS: GABAPENTIN 400 MG CAPSULE (FP) PO SCH ×3 (06:57→22:40)
[2017-05-08] MEDS ORDERED: PT OWN MED DRAWER 7, Y5N ONE (09:15)
[2017-05-08] MEDS: NICOTINE 21 MG/24 HOURS TOPICAL PATCH TD SCH (10:22)
[2017-05-08] MEDS: ATOMOXETINE HCL 40 MG CAPSULE PO SCH ×2 (10:22→13:23)
[2017-05-08] MEDS: LACTOBACILLUS ACIDOPHILUS 1 EACH TAB (FP) PO SCH (10:22)
[2017-05-08] MEDS: ESCITALOPRAM OXALATE 10 MG TABLET (FP) PO SCH (10:23)
[2017-05-08] MEDS: hydrOXYzine PAMOATE 50 MG CAPSULE (FP) PO SCH ×2 (10:24→22:41)
[2017-05-08] MEDS: RANITIDINE HCL 150 MG TABLET (FP) PO SCH ×2 (10:25→22:40)
[2017-05-08] MEDS: PANTOPRAZOLE 40 MG TABLET (FP) PO SCH (10:25)
[2017-05-08] MEDS: PRENATAL VITAMINS W/ FOLIC ACID TABLET (FP) PO SCH (10:25)
--- NOTE | 2017-05-08 19:00 | PN ---
[facility] Progress Note Note: 32 years old female allergic to fish, smell fish for dinner on hallway. observed patient sitting on floor, shaking her both hands symmetrically, bp 134/ 61 ap 106, o2sat 99%, ambulance was called information provided to er. proposition: return to [facility] continue rehab
[2017-05-08] MEDS: THIAMINE HCL 100 MG TABLET (FP) PO SCH (22:40)
[2017-05-08] MEDS: QUEtiapine FUMARATE 300 MG TABLET PO SCH (22:40)
[2017-05-08] MEDS ORDERED: diphenhydrAMINE HCL 25 MG CAPSULE (FP) PO ONE ×2 (23:25→23:26)
--- NOTE | 2017-05-08 23:31 | PN ---
[facility] Progress Note Note: patient returns from er, continue rehab
[2017-05-09] MEDS: GABAPENTIN 400 MG CAPSULE (FP) PO SCH ×3 (06:29→21:52)
[2017-05-09] MEDS: IBUPROFEN 600 MG TABLET (FP) PO PRN ×3 (06:30→21:52)
[2017-05-09] MEDS: CYCLOBENZAPRINE HCL 10 MG TABLET (FP) PO PRN ×2 (06:30→21:53)
[2017-05-09] MEDS: LACTOBACILLUS ACIDOPHILUS 1 EACH TAB (FP) PO SCH (10:11)
[2017-05-09] MEDS: hydrOXYzine PAMOATE 50 MG CAPSULE (FP) PO SCH ×2 (10:12→21:53)
[2017-05-09] MEDS: ATOMOXETINE HCL 40 MG CAPSULE PO SCH ×2 (10:13→13:14)
[2017-05-09] MEDS: ESCITALOPRAM OXALATE 10 MG TABLET (FP) PO SCH (10:14)
[2017-05-09] MEDS: PANTOPRAZOLE 40 MG TABLET (FP) PO SCH (10:14)
[2017-05-09] MEDS: PRENATAL VITAMINS W/ FOLIC ACID TABLET (FP) PO SCH (10:14)
[2017-05-09] MEDS: RANITIDINE HCL 150 MG TABLET (FP) PO SCH ×2 (10:15→21:52)
[2017-05-09] MEDS: NICOTINE 21 MG/24 HOURS TOPICAL PATCH TD SCH (10:15)
[2017-05-09] MEDS ORDERED: PT OWN MED DRAWER 7, Y5N ONE (13:03)
[2017-05-09] MEDS: THIAMINE HCL 100 MG TABLET (FP) PO SCH (21:52)
[2017-05-09] MEDS: QUEtiapine FUMARATE 300 MG TABLET PO SCH (21:53)
[2017-05-10] MEDS: IBUPROFEN 600 MG TABLET (FP) PO PRN ×3 (06:19→21:49)
[2017-05-10] MEDS: GABAPENTIN 400 MG CAPSULE (FP) PO SCH ×3 (06:19→21:49)
[2017-05-10] MEDS: CYCLOBENZAPRINE HCL 10 MG TABLET (FP) PO PRN ×2 (06:20→21:48)
[2017-05-10] MEDS: NICOTINE 21 MG/24 HOURS TOPICAL PATCH TD SCH (09:59)
[2017-05-10] MEDS: LACTOBACILLUS ACIDOPHILUS 1 EACH TAB (FP) PO SCH (09:59)
[2017-05-10] MEDS: ESCITALOPRAM OXALATE 10 MG TABLET (FP) PO SCH (10:00)
[2017-05-10] MEDS: PRENATAL VITAMINS W/ FOLIC ACID TABLET (FP) PO SCH (10:00)
[2017-05-10] MEDS: hydrOXYzine PAMOATE 50 MG CAPSULE (FP) PO SCH ×2 (10:00→21:48)
[2017-05-10] MEDS: PANTOPRAZOLE 40 MG TABLET (FP) PO SCH (10:00)
[2017-05-10] MEDS: ATOMOXETINE HCL 40 MG CAPSULE PO SCH ×2 (10:01→13:07)
[2017-05-10] MEDS: RANITIDINE HCL 150 MG TABLET (FP) PO SCH ×2 (10:01→21:48)
[2017-05-10] MEDS: THIAMINE HCL 100 MG TABLET (FP) PO SCH (21:48)
[2017-05-10] MEDS: QUEtiapine FUMARATE 300 MG TABLET PO SCH (21:48)
[2017-05-11] MEDS: IBUPROFEN 600 MG TABLET (FP) PO PRN ×3 (06:08→22:05)
[2017-05-11] MEDS: CYCLOBENZAPRINE HCL 10 MG TABLET (FP) PO PRN ×2 (06:08→22:04)
[2017-05-11] MEDS: GABAPENTIN 400 MG CAPSULE (FP) PO SCH ×3 (06:08→22:04)
[2017-05-11 07:06] VITALS: PULSE 98
[2017-05-11] MEDS: ATOMOXETINE HCL 40 MG CAPSULE PO SCH ×2 (10:15→13:02)
[2017-05-11] MEDS: LACTOBACILLUS ACIDOPHILUS 1 EACH TAB (FP) PO SCH (10:15)
[2017-05-11] MEDS: PRENATAL VITAMINS W/ FOLIC ACID TABLET (FP) PO SCH (10:16)
[2017-05-11] MEDS: NICOTINE 21 MG/24 HOURS TOPICAL PATCH TD SCH (10:16)
[2017-05-11] MEDS: hydrOXYzine PAMOATE 50 MG CAPSULE (FP) PO SCH ×2 (10:16→22:04)
[2017-05-11] MEDS: PANTOPRAZOLE 40 MG TABLET (FP) PO SCH (10:17)
[2017-05-11] MEDS: ESCITALOPRAM OXALATE 10 MG TABLET (FP) PO SCH (10:17)
[2017-05-11] MEDS: RANITIDINE HCL 150 MG TABLET (FP) PO SCH ×2 (10:17→22:04)
[2017-05-11] MEDS: THIAMINE HCL 100 MG TABLET (FP) PO SCH (22:04)
[2017-05-11] MEDS: QUEtiapine FUMARATE 300 MG TABLET PO SCH (22:04)
[2017-05-12] MEDS: GABAPENTIN 400 MG CAPSULE (FP) PO SCH ×3 (06:22→21:52)
[2017-05-12] MEDS: CYCLOBENZAPRINE HCL 10 MG TABLET (FP) PO PRN ×2 (06:23→15:07)
[2017-05-12] MEDS: IBUPROFEN 600 MG TABLET (FP) PO PRN ×3 (06:23→21:53)
[2017-05-12] MEDS ORDERED: PT OWN MED DRAWER 7, Y5N ONE ×2 (09:17→13:40)
[2017-05-12] MEDS: LACTOBACILLUS ACIDOPHILUS 1 EACH TAB (FP) PO SCH (10:13)
[2017-05-12] MEDS: ATOMOXETINE HCL 40 MG CAPSULE PO SCH ×2 (10:13→15:06)
[2017-05-12] MEDS: hydrOXYzine PAMOATE 50 MG CAPSULE (FP) PO SCH ×2 (10:14→21:52)
[2017-05-12] MEDS: ESCITALOPRAM OXALATE 10 MG TABLET (FP) PO SCH (10:14)
[2017-05-12] MEDS: PANTOPRAZOLE 40 MG TABLET (FP) PO SCH (10:14)
[2017-05-12] MEDS: RANITIDINE HCL 150 MG TABLET (FP) PO SCH ×2 (10:14→22:09)
[2017-05-12] MEDS: PRENATAL VITAMINS W/ FOLIC ACID TABLET (FP) PO SCH (10:14)
[2017-05-12] MEDS: NICOTINE 21 MG/24 HOURS TOPICAL PATCH TD SCH (10:15)
[2017-05-12] MEDS: THIAMINE HCL 100 MG TABLET (FP) PO SCH (21:51)
[2017-05-12] MEDS: QUEtiapine FUMARATE 300 MG TABLET PO SCH (21:52)
[2017-05-13] MEDS: CYCLOBENZAPRINE HCL 10 MG TABLET (FP) PO PRN ×2 (06:33→22:09)
[2017-05-13] MEDS: GABAPENTIN 400 MG CAPSULE (FP) PO SCH ×3 (06:33→22:09)
[2017-05-13] MEDS: IBUPROFEN 600 MG TABLET (FP) PO PRN ×3 (06:33→22:09)
[2017-05-13] MEDS ORDERED: PT OWN MED DRAWER 7, Y5N ONE ×2 (09:05→12:34)
[2017-05-13] MEDS: ATOMOXETINE HCL 40 MG CAPSULE PO SCH ×2 (10:10→13:28)
[2017-05-13] MEDS: LACTOBACILLUS ACIDOPHILUS 1 EACH TAB (FP) PO SCH (10:10)
[2017-05-13] MEDS: RANITIDINE HCL 150 MG TABLET (FP) PO SCH ×2 (10:11→22:09)
[2017-05-13] MEDS: PRENATAL VITAMINS W/ FOLIC ACID TABLET (FP) PO SCH (10:11)
[2017-05-13] MEDS: ESCITALOPRAM OXALATE 10 MG TABLET (FP) PO SCH (10:11)
[2017-05-13] MEDS: PANTOPRAZOLE 40 MG TABLET (FP) PO SCH (10:11)
[2017-05-13] MEDS: hydrOXYzine PAMOATE 50 MG CAPSULE (FP) PO SCH ×2 (10:11→22:08)
[2017-05-13] MEDS: NICOTINE 21 MG/24 HOURS TOPICAL PATCH TD SCH (10:12)
[2017-05-13] MEDS: THIAMINE HCL 100 MG TABLET (FP) PO SCH (22:08)
[2017-05-13] MEDS: QUEtiapine FUMARATE 300 MG TABLET PO SCH (22:09)
[2017-05-14] MEDS: IBUPROFEN 600 MG TABLET (FP) PO PRN (06:30)
[2017-05-14] MEDS: CYCLOBENZAPRINE HCL 10 MG TABLET (FP) PO PRN (06:30)
[2017-05-14] MEDS: GABAPENTIN 400 MG CAPSULE (FP) PO SCH (06:30)
[2017-05-14 07:07] VITALS: BP 120/72; TEMP 97.8
--- NOTE | 2017-05-14 08:43 | PN ---
Psychiatric Progress Note Vital Signs: Vital Signs Period Temp Pulse Resp BP Sys/Mejia Pulse Ox Last 24 Hr 97.8 F 98 18-18 120/72 Date of Session: 05/14/17 Chief Complaint:: Discharge visit HPI: Patient addressed Alcohol,Cannabis,Opioid and Cocaine dependence comorbid with Substance induced mood disorder,PTSD,ADHD. ROS: UTI,Fibromialgia. Current Medications: Active Medications Generic Name Dose Route Start Last Admin Trade Name Freq PRN Reason Stop Dose Admin Acetaminophen 650 mg 04/30/17 15:10 05/07/17 13:49 Tylenol - PO 650 mg Q4H PRN Administration PAIN Al Hydroxide/Mg Hydroxide 30 ml 04/30/17 15:10 05/01/17 08:37 Mylanta Oral Suspension - PO 30 ml Q6H PRN Administration DYSPEPSIA Atomoxetine HCl 40 mg 05/01/17 10:00 05/13/17 13:28 Strattera - PO 40 mg BID@1000,1400 COBY Administration Buspirone HCl 30 mg 05/07/17 22:00 05/13/17 22:09 Buspar - PO 30 mg BID COBY Administration Cyclobenzaprine HCl 10 mg 04/30/17 15:13 05/14/17 06:30 Flexeril - PO 10 mg TID PRN Administration MUSCLE SPASMS Diphenhydramine HCl 50 mg 04/30/17 15:10 Benadryl - PO HSMR1 PRN INSOMNIA Escitalopram Oxalate 10 mg 05/08/17 10:00 05/13/17 10:11 Lexapro - PO 10 mg DAILY COBY Administration Eucalyptus/Menthol/Phenol/Sorbitol 1 each 04/30/17 15:10 Cepastat Lozenge - MM Q4H PRN SORE THROAT Gabapentin 800 mg 05/02/17 14:00 05/14/17 06:30 Neurontin - PO 800 mg TID COBY Administration Guaifenesin 10 ml 04/30/17 15:10 Robitussin Dm - PO Q6H PRN COUGH Hydroxyzine Pamoate 100 mg 05/04/17 22:00 05/13/17 22:08 Vistaril - PO 100 mg BID COBY Administration Ibuprofen 600 mg 05/06/17 12:39 05/14/17 06:30 Motrin - PO 600 mg Q6H PRN Administration SEVERE PAIN Lactobacillus Acidophilus 1 tab 05/07/17 13:30 05/13/17 10:10 Bacid - PO 1 tab DAILY COBY Administration Loperamide HCl 4 mg 04/30/17 15:10 Imodium - PO Q6H PRN DIARRHEA Magnesium Citrate 300 ml 04/30/17 15:10 Citroma - PO Q48H PRN CONSTIPATION Magnesium Hydroxide 30 ml 04/30/17 15:10 Milk Of Magnesia - PO DAILY PRN CONSTIPATION Nicotine 21 mg 05/01/17 10:00 05/13/17 10:12 Nicoderm Patch - TD 21 mg DAILY COBY Administration Pantoprazole Sodium 40 mg 05/01/17 14:45 05/13/17 10:11 Protonix - PO 40 mg DAILY COBY Administration Multivit/Folic Acid/Iron 1 tab 05/01/17 10:00 05/13/17 10:11 Vitamins (Sjr) - PO 1 tab DAILY COBY Administration Pseudoephedrine/Triprolidine 1 combo 04/30/17 15:10 Actifed - PO TID PRN NASAL CONGESTION Quetiapine Fumarate 600 mg 04/30/17 22:00 05/13/17 22:09 Seroquel - PO 600 mg HS COBY Administration Ranitidine HCl 150 mg 05/01/17 22:00 05/13/17 22:09 Zantac - PO 150 mg BID COBY Administration Thiamine HCl 100 mg 04/30/17 22:00 05/13/17 22:08 Vitamin B1 - PO 100 mg HS COBY Administration Current Side Effect: No Lab tests ordered: No Lab tests reviewed: Yes Provider note:: The patient completed this program today.She has met her treatment goals and will continue to address her issues on outpatient basis at [facility] program .Patient reports finding Buspar 30 mg po bid, Straterra 40 mg po bid,Neurontin 800 mg po tid and Seroquel 600 mg po hs helps to cope with mood instability,depression ,anxiety.Scripts for 30 days provided. Patient identifies areas of difficulties and ways ,supports,coping skills to utilize to maintain recovery.Supportive therapy provided as well as psychoeducation. Patient is stable for discharge today. Total face to face time:: 30 Mental Status Exam - Mental Status Exam Alert and Oriented to: Time, Place, Person Cognitive Function: Grossly Intact Patient Appearance: Well Groomed Mood: Anxious Affect: Labile Patient Behavior: Cooperative Speech Pattern: Clear Voice Loudness: Normal Thought Process: Goal Oriented Thought Disorder: Not Present Hallucinations: Denies Suicidal Ideation: Denies Homicidal Ideation: Denies Insight/Judgement: Fair Sleep: Fair Appetite: Good Muscle strength/Tone: Normal Gait/Station: Normal
[2017-05-14] MEDS ORDERED: PT OWN MED DRAWER 7, Y5N ONE (08:53)
[2017-05-14] MEDS: ATOMOXETINE HCL 40 MG CAPSULE PO SCH (09:47)
[2017-05-14] MEDS: LACTOBACILLUS ACIDOPHILUS 1 EACH TAB (FP) PO SCH (09:47)
[2017-05-14] MEDS: PANTOPRAZOLE 40 MG TABLET (FP) PO SCH (09:48)
[2017-05-14] MEDS: hydrOXYzine PAMOATE 50 MG CAPSULE (FP) PO SCH (09:48)
[2017-05-14] MEDS: PRENATAL VITAMINS W/ FOLIC ACID TABLET (FP) PO SCH (09:48)
[2017-05-14] MEDS: NICOTINE 21 MG/24 HOURS TOPICAL PATCH TD SCH (09:48)
[2017-05-14] MEDS: RANITIDINE HCL 150 MG TABLET (FP) PO SCH (09:48)
[2017-05-14] MEDS: ESCITALOPRAM OXALATE 10 MG TABLET (FP) PO SCH (09:48)
== END 2017-05-14 10:20 | disposition home or self-care (01) | DRG 772 ==
LOC: YASAS 12:03 → Y3E 15:29
PROVIDERS: ADMIT Psychiatry & Neurology Psychiatry; ATTEND Psychiatry & Neurology Psychiatry
PROC: HZ42ZZZ Group Counseling for Substance Abuse Treatment, Cognitive-Behavioral (ICD-10-PCS; principal; 2017-04-30)
DX: F11.20 Opioid dependence, uncomplicated (principal); F10.20 Alcohol dependence, uncomplicated; F14.20 Cocaine dependence, uncomplicated; F17.210 Nicotine dependence, cigarettes, uncomplicated; F19.24 Other psychoactive substance dependence with psychoactive substance-induced mood disorder; F43.10 Post-traumatic stress disorder, unspecified; F90.9 Attention-deficit hyperactivity disorder, unspecified type; M79.7 Fibromyalgia; N39.0 Urinary tract infection, site not specified; B37.3 Candidiasis of vulva and vagina; Z91.013 Allergy to seafood; Z91.048 Other nonmedicinal substance allergy status
CPT/HCPCS: 36415; 81003; 81015; 82150; 83690; 86593; 90732; 93005; 93010; G0009

== ENCOUNTER 2017-05-08 18:38 | Emergency (ER) | payer BC ==
[2017-05-08 18:50] VITALS: TEMP 97.9; BMI 23.7
--- NOTE | 2017-05-08 19:30 | PDOC ---
History of Present Illness - General Chief Complaint: Allergic Reaction Stated Complaint: ALLERGIC REACTION History Source: Patient Exam Limitations: No Limitations - History of Present Illness Initial Comments: 05/08/17 19:24 Patient is a 32-year-old female brought in by ambulance sent from [facility] for airborne reaction to fish, history of Lyme disease, suicide ideation, heroin abuse. Patient reports that she was sitting outside the room when they walked by with fish she started to feel her throat close was asking for an EpiPen but was given 25 mg of Benadryl. Incident occurred approximately 2 hours prior to arrival. Patient now with hoarse voice, sensation of "throat tightness". Patient is able to speak full sentences clearly, denies any chest pain, no rash , no vomiting, no shortness of breath. Patient denies abdominal pain. Past Medical History: Denies. Allergies: No known allergies Medications: Family History: Non-contributory Social History: Denies smoking, alcohol use, or IVDU Vital signs on arrival are notable for pulse of 96. Review of Systems GENERAL/CONSTITUTIONAL: No fever or chills. No weakness. No weight change. HEAD, EYES, EARS, NOSE AND THROAT: No change in vision. No ear pain or discharge. No sore throat. CARDIOVASCULAR: No chest pain or shortness of breath. RESPIRATORY: No cough, wheezing, or hemoptysis. GASTROINTESTINAL: No nausea, vomiting, diarrhea or constipation. GENITOURINARY: No dysuria, frequency, or change in urination. MUSCULOSKELETAL: No joint or muscle swelling or pain. No neck or back pain. SKIN AND BREASTS: No rash or easy bruising. NEUROLOGIC: No headache, vertigo, loss of consciousness, or loss of sensation. PSYCHIATRIC: No depression or anxiety. ENDOCRINE: No increased thirst. No abnormal weight change. HEMATOLOGIC/LYMPHATIC: No anemia, easy bleeding, or history of blood clots. ALLERGIC/IMMUNOLOGIC: No hives or skin allergy. No latex allergy. Physical Exam: GENERAL: The patient is awake, alert, and fully oriented, in no acute distress. HEAD: Normal with no signs of trauma. EYES: Pupils equal, round and reactive to light, extraocular movements intact, sclera anicteric, conjunctiva clear. ENT: Ears normal, nares patent, oropharynx clear without exudates. Moist mucous membranes. No uvula deviation. + Hoarse voice NECK: Normal range of motion, supple without lymphadenopathy, JVD, or masses. No stridor LUNGS: Breath sounds equal, clear to auscultation bilaterally. No wheezes, and no crackles. HEART: Regular rate and rhythm, normal S1 and S2 without murmur, rub or gallop. ABDOMEN: Soft, nontender, normoactive bowel sounds. No guarding, no rebound. No masses. No bruising or abrasions RECTAL : Guaiac negative, normal rectal tone. MUSCULOSKELETAL: Normal range of motion, no edema. No clubbing or cyanosis. No cords, erythema, or tenderness. No CVA Tenderness with fist. NEUROLOGICAL: Cranial nerves II through XII grossly intact. Normal speech, normal gait. PSYCH: Normal mood, normal affect. SKIN: Warm, Dry, normal turgor, no rashes or lesions noted. No hives Past History - Past Medical History Allergies/Adverse Reactions: Allergies Allergy/AdvReac Type Severity Reaction Status Date / Time Fish Containing Products Allergy Intermediate Swelling Verified 04/30/17 15:07 iodine Allergy Intermediate Hives Verified 04/30/17 15:07 poison deborah extract Allergy Intermediate Itching Verified 04/30/17 15:07 shellfish derived Allergy Intermediate Swelling Verified 04/30/17 15:07 poison oak Allergy Intermediate Itching Uncoded 04/30/17 15:07 red ant Allergy Intermediate Itching Uncoded 04/30/17 15:07 shellfish Allergy Intermediate Swelling Uncoded 04/30/17 15:07 Home Medications: Ambulatory Orders Buspirone HCl [Buspar -] 120 mg PO DAILY 04/25/17 Dextroamphetamine/Amphetamine [Adderall Xr 20 mg Capsule] 20 mg PO BID 04/25/17 Gabapentin [Neurontin] 400 mg PO QID 04/25/17 Atomoxetine HCl [Strattera] 40 mg PO BID #60 tab 04/26/17 Cyclobenzaprine HCl [Flexeril -] 10 mg PO TID #90 tablet 04/26/17 Quetiapine Fumarate [Seroquel] 600 mg PO HS #30 tablet 04/26/17 Ranitidine [Zantac -] 150 mg PO BID #60 tablet 04/29/17 Sulfamethoxazole/Trimethoprim [Bactrim DS -] 1 each PO BID #10 tablet 04/29/17 Atomoxetine HCl [Strattera -] 40 mg PO BID@1000,1400 #60 cap 05/04/17 Buspirone HCl [Buspar -] 20 mg PO BID #60 tablet 05/04/17 Gabapentin [Neurontin -] 800 mg PO TID #120 cap 05/04/17 Quetiapine Fumarate [Seroquel -] 600 mg PO HS #60 tablet 05/04/17 Epinephrine [Epipen] 0.3 mg IJ ASDIR PRN #1 auto.injct 05/08/17 Buspirone HCl [Buspar -] 30 mg PO BID #120 tablet 05/11/17 Escitalopram Oxalate [Lexapro -] 10 mg PO DAILY #30 tablet 05/11/17 Gabapentin [Neurontin -] 800 mg PO Q8H #180 capsule MDD 2400 05/11/17 Pantoprazole Sodium [Protonix -] 40 mg PO DAILY #30 mg 05/11/17 Quetiapine Fumarate [Seroquel] 600 mg PO HS #60 tablet 05/11/17 Anemia: No Asthma: No Cancer: No Cardiac Disorders: No CVA: No COPD: No CHF: No Dementia: No Diabetes: No GI Disorders: Yes (IBS) Disorders: No HTN: No Hypercholesterolemia: No Kidney Stones: No Liver Disease: No Suicide Attempt (Hx): Yes Seizures: No Thyroid Disease: No - Surgical History Abdominal Surgery: No Appendectomy: No Cardiac Surgery: No Cholecystectomy: No Lung Surgery: No Neurologic Surgery: No Orthopedic Surgery: No - Reproductive History PID: No - Psycho/Social/Smoking Cessation Hx Anxiety: Yes Suicidal Ideation: No Smoking History: Never smoked Have you smoked in the past 12 months: Yes 'Breaking Loose' booklet given: 04/25/17 Hx Alcohol Use: Yes (reports drinking since 13 yo) Drug/Substance Use Hx: Yes (cocaine since 16 yo,heroin since 10 yo,sedative on/ off) Substance Use Type: Alcohol, Cocaine, Opiates, Tranquilizers Hx Substance Use Treatment: Yes Respiratory Specific PMHX - Complaint Specific PMHX TB (Tuberculosis): No *Physical Exam - Vital Signs Last Vital Signs Temp Pulse Resp BP Pulse Ox 97.9 F 92 H 18 120/77 100 05/08/17 18:47 05/08/17 18:47 05/08/17 18:47 05/08/17 18:47 05/08/17 18:47 Medical Decision Making - Medical Decision Making 05/08/17 19:30 A/P: Patient here for evaluation, allergic reaction to airborne fish smell. Patient is in no acute distress, is demonstrating hoarse voice but no other symptoms. Patient feels that her throat is tight however able to speak full sentences, lungs are clear without wheezing, no abdominal pain, no vomiting, able to ambulate without difficulty. Plan: 1. Benadryl 25 mg IV, patient already received 25 mg by mouth. 2. Pepcid 20 mg IV 3. Solumedrol 125 mg IV x 1. 4. Saline Lock I am signing this patient out to my colleague: SCOOBY Collado In brief, this patient is being seen in the ED for a chief complaint of: Allergic reaction to fish I have completed the initial assessment interview note and have ordered: Physical examination is benign, hoarse voice with feeling of tightness in throat I have ordered Benadryl, Zantac and Solu-Medrol Plan for disposition is as follows: once completed assessment if pt stable return to [facility]. 05/08/17 19:59 *DC/Admit/Observation/Transfer Diagnosis at time of Disposition: Anaphylactic reaction Qualifiers: Encounter type: initial encounter Qualified Code(s): T78.2XXA - Anaphylactic shock, unspecified, initial encounter - Prescriptions Prescriptions: Epinephrine [Epipen] 0.3 mg IJ ASDIR PRN #1 auto.injct PRN Reason: anaphylaxis - Referrals Referrals: STAFF,NOT ON [Primary Care Provider] - - Patient Instructions Printed Discharge Instructions: DI for Anaphylaxis, DI for Adverse Drug Reaction -- Allergic Additional Instructions: Please follow up with your primary care doctor within the next two days. If you experience any new swelling, tightness, or closing sensation of the throat, mouth, lips, tongue, or neck, please use the Epipen prescribed and return to the ER immediately.
--- NOTE | 2017-05-08 19:43 | PDOC ---
*Physical Exam - Vital Signs Last Vital Signs Temp Pulse Resp BP Pulse Ox 97.9 F 92 H 18 120/77 100 05/08/17 18:47 05/08/17 18:47 05/08/17 18:47 05/08/17 18:47 05/08/17 18:47 - Physical Exam Comments: 05/08/17 19:42 Sign-out received from fast track provider Andolino. Pt interviewed and examined. Ancillary studies reviewed. Patient reportedly had allergic reaction at [facility] after smelling fish. Patient reports hoarse throat and "throat tightness." Patient has been given a total of 50 mg Benadryl (25mg po and 25 IV), as well as Zantac 150 mg and Solumedrol 125 mv IV. Will monitor and reassess. 05/08/17 20:53 Patient reassessed; at this time she denies any difficulty breathing or shortness of breath and states her only complaint is that "I'm thirsty." Will discharge back to [facility]. Epipen rx sent to pharm. Advised patient of signs and symptoms for return to ER ; patient verbalized understanding and agrees to plan. *DC/Admit/Observation/Transfer Diagnosis at time of Disposition: Anaphylactic reaction Qualifiers: Encounter type: initial encounter Qualified Code(s): T78.2XXA - Anaphylactic shock, unspecified, initial encounter - Discharge Dispostion Disposition: I.P. ALCOHOL/SUBS ABUSE REHAB Condition at time of disposition: Improved Admit: No - Prescriptions Prescriptions: Epinephrine [Epipen] 0.3 mg IJ ASDIR PRN #1 auto.injct PRN Reason: anaphylaxis - Referrals Referrals: STAFF,NOT ON [Primary Care Provider] - - Patient Instructions Printed Discharge Instructions: DI for Adverse Drug Reaction -- Allergic, DI for Anaphylaxis Additional Instructions: Please follow up with your primary care doctor within the next two days. If you experience any new swelling, tightness, or closing sensation of the throat, mouth, lips, tongue, or neck, please use the Epipen prescribed and return to the ER immediately. - Post Discharge Activity
[2017-05-08] MEDS ORDERED: methylPREDNISolone NA SUCC 125 MG/2 ML VIAL IVPB ONE (19:57)
[2017-05-08] MEDS ORDERED: FAMOTIDINE 20 MG/50 ML IVPB 50 ML IVPB ONE ×2 (19:58→20:01)
[2017-05-08] MEDS ORDERED: methylPREDNISolone NA SUCC 125 MG/2 ML VIAL ONE (20:01)
[2017-05-08 20:55] VITALS: BP 135/84; PULSE 90
== END 2017-05-08 22:02 | disposition other institution (70) ==
LOC: JER 18:38
PROC: 3E033GC Introduction of Other Therapeutic Substance into Peripheral Vein, Percutaneous Approach (ICD-10-PCS; principal; 2017-05-08)
PROC: 3E033NZ Introduction of Analgesics, Hypnotics, Sedatives into Peripheral Vein, Percutaneous Approach (ICD-10-PCS; 2017-05-08)
DX: R09.89 Other specified symptoms and signs involving the circulatory and respiratory systems (principal); K58.9 Irritable bowel syndrome, unspecified; T78.03XA Anaphylactic reaction due to other fish, initial encounter; Z91.013 Allergy to seafood; Z91.048 Other nonmedicinal substance allergy status; Z91.5 Personal history of self-harm
CPT/HCPCS: 99282-25